=== PATIENT | male | born 1970 | race Caucasian/White ===

== ENCOUNTER 2019-05-05 07:04 | Day surgery (SDC) | payer MEDICARE, MEDICAID ==
[2019-05-04 12:53] VITALS: BMI 26.6
[2019-05-05] MEDS ORDERED: PROPOFOL 200 MG/20 ML VIAL ONE (09:18)
--- NOTE | 2019-05-05 14:03 | OP ---
DATE OF PROCEDURE: 05/05/2019 PREPROCEDURE DIAGNOSIS: Colorectal cancer screening. POSTPROCEDURE DIAGNOSIS: Diminutive polyp in the ascending colon by cold snare polypectomy. RECOMMENDATIONS: 1. Repeat colonoscopy in 5 years in regard to family history, depending on the patient's overall health at that time. 2. Await pathology. ANESTHESIA: TIVA. DESCRIPTION OF PROCEDURE: The patient was informed of the risk, benefits, and possible complications of endoscopy including perforation, reaction to medication, and aspiration. Informed consent was obtained. The patient was brought to the endoscopy suite, where he was sedated in gradual fashion. Once he was comfortable, informed consent was obtained. A rectal examination was performed. After he was sedated, the endoscope was advanced from the anal canal through the colon to the cecum, which was identified by ileocecal valve and appendiceal orifice. The prep was good. We irrigated the colon for about 250 mL of sterile water to improve the prep. One diminutive polyp was found in the ascending colon, removed by cold snare polypectomy and submitted to Pathology. The scope was brought back to the remainder of the colon. No other lesions were seen. Retroflexed views in the rectum were normal. The scope was removed. The patient tolerated the procedure well. There were no complications. Job ID: [id number]
== END 2019-05-05 10:45 | disposition home or self-care (01) ==
LOC: SDC 07:04
PROVIDERS: ATTEND Internal Medicine Gastroenterology
PROC: 0DBK8ZX Excision of Ascending Colon, Via Natural or Artificial Opening Endoscopic, Diagnostic (ICD-10-PCS; principal; 2019-05-05)
DX: Z12.11 Encounter for screening for malignant neoplasm of colon (principal); D12.2 Benign neoplasm of ascending colon; Q99.2 Fragile X chromosome; F72 Severe intellectual disabilities; F39 Unspecified mood [affective] disorder; G47.33 Obstructive sleep apnea (adult) (pediatric); Z80.0 Family history of malignant neoplasm of digestive organs; Z79.899 Other long term (current) drug therapy; Z88.0 Allergy status to penicillin; Z88.8 Allergy status to other drugs, medicaments and biological substances
CPT/HCPCS: 88305; J2704